=== PATIENT | male | born 1955 | race Caucasian/White ===

== ENCOUNTER 2017-01-25 15:29 | Inpatient (IN) | payer BC ==
[~2017-01-25] VITALS: Ht 170.2 cm; Wt 81.2 kg
[2017-02-05] MEDS ORDERED: TAMS0.4C4 PO (09:27)
[2017-02-21] MEDS ORDERED: TRANEXAMIC ACID IV SCH ×2 (07:30→14:00)
[2017-02-21] MEDS ORDERED: VANCOMYCIN 1000 MG/NS 250 ML (for <70 kg) IV SCH ×2 (07:30)
[2017-02-21] MEDS ORDERED: EXPAREL PERI-ARTICULAR INJECTION (TOTAL VOL. 60 ML) P-ARTICULR SCH ×2 (07:30)
[2017-02-21] MEDS ORDERED: ceFAZolin 2 GM PREMIX 50 ML IV SCH (07:30)
[2017-02-21] MEDS ORDERED: SODIUM CHLORIDE 0.9% IV SCH ×2 (07:30→14:00)
[2017-02-21] MEDS ORDERED: SODIUM CHLORID 0.9% 500 ML IV PRN (07:30)
[2017-02-21] MEDS ORDERED: POVIDONE IODINE 5% (ANTISEPSIS KIT) 4 APPLICATIONS EACH NARE PRN (07:30)
[2017-02-21] MEDS ORDERED: METOPROLOL TARTRATE 25 MG TAB PO PRN (07:30)
[2017-02-21] MEDS ORDERED: INSULIN HUMAN REGULAR 1,000 UNITS/10 ML VIAL SQ PRN (07:30)
[2017-02-21] MEDS ORDERED: CHLORHEXIDINE GLUCONATE 2 % 1 PACK (2 CLOTHS) TOPICAL PRN (07:30)
[2017-02-21] MEDS ORDERED: POVIDONE IODINE 7.5% SCRUB 118 ML BOTTLE TOPICAL SCH (07:30)
[2017-02-21] MEDS ORDERED: LACTATED RINGER'S 1000 ML IV PRN (07:30)
[2017-02-21] MEDS ORDERED: DEXAMETHASONE SOD PHOS 20 MG/5 ML VIAL IV SCH (08:00)
[2017-02-21 08:01] VITALS: BP 130/92; PULSE 67; RESP 18; TEMP 98; O2SAT 97
[2017-02-21] MEDS ORDERED: GENTAMICIN SULFATE 80 MG/2 ML VIAL ONE (09:50)
--- NOTE | 2017-02-21 10:53 | HHI.DCPOC ---
Discharge Care Plan Diagnosis: (1) Osteoarthritis of right hip (2) Status post total hip replacement, right Your Health Problems Are: Difficulty with ADL Goals to Promote Your Health * To prevent worsening of your condition and complications * To maintain your health at the optimal level Directions to Meet Your Goals Take your medications as prescribed Follow your dietary instruction Follow activity as directed Keep your appointments as scheduled Take your immunizations and boosters as scheduled If your symptoms worsen call your PCP, if no PCP go to Urgent Care Center or Emergency Room Smoking is Dangerous to Your Health. Avoid second hand smoke Call the 24-hour hour crisis hotline for domestic abuse at Everett Pascual Feb 21, 2017 10:53
--- NOTE | 2017-02-21 10:54 | HHI.FF ---
Face to Face Verification Diagnosis: (1) Osteoarthritis of right hip (2) Status post total hip replacement, right Physical Therapy Gait training, Transfer training, bed to chair Hip: Total hip Right LE Weight Bearing: WB as tolerated Right LE Range of Motion: Active ROM Nursing Nursing: Guilherme teaching, Dressing changes Dressing Changes: Daily dressing change I have seen patient Jaxon Etienne on 02/21/17. My clinical findings support the need for the requested home health care services because: Limited ability to care for self High risk of falls I certify that my clinical findings support that this patient is homebound because: Post-op weakness Unsteady gait/balance Everett Pascual Feb 21, 2017 10:54
[2017-02-21] MEDS ORDERED: COMMODE 3-IN-11 MIS (10:56)
[2017-02-21] MEDS ORDERED: WALKER WHEELS/F1 MIS (10:56)
[2017-02-21] MEDS ORDERED: MORPHINE SULFATE 4 MG/ML INJ IV PUSH PRN (12:15)
[2017-02-21] MEDS ORDERED: ONDANSETRON HCL 4 MG/2 ML VIAL IVP PRN (12:15)
[2017-02-21] MEDS ORDERED: NALOXONE HCL 0.4 MG/ML AMP IV PRN (12:15)
[2017-02-21] MEDS ORDERED: ALUMINUM/MAGNESIUM/SIMETH 30 ML CUP PO PRN (12:15)
[2017-02-21] MEDS ORDERED: MAGNESIUM HYDROXIDE SUSP 30 ML CUP PO PRN (12:15)
[2017-02-21] MEDS ORDERED: SODIUM CHLORIDE 0.9% FLUSH 5 ML FLUSH IVF PRN (12:15)
[2017-02-21] MEDS ORDERED: BISACODYL 10 MG SUPP RECTAL PRN (12:15)
[2017-02-21] MEDS ORDERED: Post-op Orders (for Pharmacy) MISC XX ONE (12:15)
[2017-02-21] MEDS ORDERED: oxyCODONE/ACETAMINOPHEN 10 MG/325 MG TAB PO PRN (12:15)
[2017-02-21] MEDS ORDERED: diphenhydrAMINE HCL 50 MG/ML VIAL IV PRN (12:15)
--- NOTE | 2017-02-21 12:17 | PD.OP ---
cc: Adrian Shelley MD Operative Report Date of Surgery: Feb 21, 2017 Preoperative Diagnosis: Right hip severe osteoarthritis Postoperative Diagnosis: Same Procedure: Right total hip arthroplasty Anesthesia: Spinal Surgeon: Adrian Shelley Silver Service Waiter(s): NANCY Lockhart The surgical procedure was assisted by my Advanced Registered Nurse Practitioner. My STEEL PICKLER presence was necessary throughout this case for the manipulation and positioning of the surgical extremity. My STEEL PICKLER was assisting me throughout the duration of this procedure. The skill set of an Advance Registered Nurse Practitioner was medically necessary to complete this procedure. During the surgical case, the surgical first assistant was working at the back table and the Advance Registered Nurse Practitioner was directly assisting me. Operation and Findings: IMPLANT DESCRIPTION: 1. Opal Gription Cup, acetabular size 54. 2. Opal AltrX polyethylene, neutral. 4. Corail femoral stem size 12, no collar, high offset. 5. Femoral head/neck Remick, 36, +5. ESTIMATED BLOOD LOSS: 500 cc. JUSTIFICATION FOR PROCEDURE: The patient has end-stage osteoarthritis to the hip. There is an attached conservative measures pathway form in the chart that describes the nonoperative measures that were undertaken prior to consideration of surgical management. The patient understood the risks and benefits of surgical management. See my office notes for further details. PROCEDURE: The patient was brought back to the operative theatre. Adequate anesthesia was obtained. The patient received intravenous vancomycin and Ancef. The patient was carefully placed on the operative table. The lower extremity was prepped and draped in the usual sterile fashion. Fluoroscopic images were obtained. We made a standard anterior incision over the hip. We dissected through the TFL fascia, exposing the anterior capsule. Arthrotomy was performed in a T-shaped fashion. The capsule was tagged with a #2 FiberWire. End-stage arthritis was identified. Osteotomy was performed through the femoral neck exposing the acetabulum. Remnants of the labrum were resected and osteophytes were removed. We sequentially reamed the acetabulum. We trialed the hip and placed the final cup into position. This was done under fluoroscopic guidance to obtain the appropriate inclination and anteversion. A manhole cover was placed into the acetabular component. We then placed the final polyethylene into position and confirmed that it was well seated. Capsular attachments on the calcar and the inner aspect of the greater trochanter were resected. On the proximal aspect of the femur we used a rongeur , box osteotome, canal finder, sequential broaches and lateralizing rasp. We calcar planed the proximal femur. Then thoroughly irrigated the wound. We trialed the hip with the appropriate size stem. We placed the final stem in to position and trialed again. The hip was stable while it was externally rotated 70 degrees when the leg was lowered to the floor. The final head was applied, and final fluoroscopic images were obtained. The wound was thoroughly irrigated again. Interarticular injection of liposomal bupivacaine was given. The capsule was closed with #2 FiberWire and #1 Vicryl. The deep fascia was closed with a #2 Stratafix, followed by 2-0 Vicryl in the skin and yvrose. Postop plan is to weight-bear as tolerated. DVT prophylaxis will be performed with Kaylen, REYNALDO lakhani, early mobilization, and Lovenox followed by aspirin. Adrian Shelley MD Feb 21, 2017 12:17
[2017-02-21] MEDS ORDERED: PERC10TA27 PO (12:20)
[2017-02-21] MEDS ORDERED: ENOX40P SQ (12:20)
[2017-02-21] MEDS ORDERED: ASPI325T PO (12:20)
[2017-02-21] MEDS ORDERED: MIDAZOLAM HCL 2 MG/2 ML VIAL ONE (12:58)
[2017-02-21] MEDS ORDERED: PROPOFOL 200 MG/20 ML AMP IV ONE (13:08)
[2017-02-21] MEDS ORDERED: PHENYLEPH/NS 1000 MCG/10 ML SYR IV ONE (13:09)
[2017-02-21] MEDS ORDERED: ePHEDrine/NS 25 MG/5 ML SYR IV ONE (13:09)
[2017-02-21] MEDS ORDERED: LACTATED RINGER'S 1000 ML INJ 1,000 ML IV ONE (13:10)
[2017-02-21] MEDS: SODIUM CHLOR 0.9% 1000 ML INJ 1,000 ML IV SCH ×2 (13:12→19:45)
[2017-02-21] MEDS ORDERED: DO NOT ADM ANY ANTICOAGULANT DRUGS PRN (13:15)
--- NOTE | 2017-02-21 14:09 | RADRPT ---
EXAM DATE/TIME: 02/21/2017 13:26 [facility] COMPARISON: No previous studies available for comparison. INDICATIONS : Post op total right hip replacement. MEDICAL HISTORY : None. SURGICAL HISTORY : None. ENCOUNTER: Initial ACUITY: 1 day PAIN SCORE: 0/10 LOCATION: Right Hip. FINDINGS: 3 views of the right hip reveal a total hip arthroplasty in good position. No fracture or dislocation . Surgical clips overlie the right hip. Air is seen within the subcutaneous tissues and joint space. CONCLUSION: Total hip arthroplasty in good position. Bryant Orr Jr., MD on February 21, 2017 at 14:05 Board Certified Radiologist. This report was verified electronically.
--- NOTE | 2017-02-21 15:39 | RADRPT ---
EXAM DATE/TIME: 02/21/2017 10:51 [facility] COMPARISON: No previous studies available for comparison. INDICATIONS : Right total hip replacement. MEDICAL HISTORY : None. SURGICAL HISTORY : None. ENCOUNTER: Initial ACUITY: 1 day PAIN SCORE: Non-responsive. LOCATION: Right Hip. FINDINGS: The patient is status post a total hip arthroplasty with a bipolar prosthesis. Prosthesis is well-sea marie. Alignment is anatomic. A fracture is not appreciated. CONCLUSION: Anatomic alignment. Ron Sage MD FACR Board Certified Radiologist. This report was verified electronically.
[2017-02-21 16:25] VITALS: BP 121/82; PULSE 74; RESP 16; TEMP 96.9; O2SAT 97
[2017-02-21] MEDS: TAMSULOSIN HCL 0.4 MG CAP PO SCH (19:44)
[2017-02-21] MEDS: SODIUM CHLORIDE 0.9% FLUSH 5 ML FLUSH IVF SCH (19:45)
[2017-02-21 20:33] VITALS: O2SAT 98
[2017-02-21 21:06] VITALS: BP 124/81; PULSE 101; RESP 18; TEMP 97.4; O2SAT 96
[2017-02-21] MEDS: ZOLPIDEM TARTRATE 5 MG TAB PO PRN (22:44)
[2017-02-21] MEDS: oxyCODONE/ACETAMINOPHEN 10 MG/325 MG TAB PO PRN (22:44)
[2017-02-22] VITALS (8 sets, daily range): BP systolic 94–141; BP diastolic 68–86; PULSE 64–96; RESP 17–18; TEMP 96.9–99.5; O2SAT 95–98
[2017-02-22 06:14] LABS: HEMATOCRIT 29.7 % (39.0-51.0); MEAN CELL VOLUME 85.4 FL (80.0-100.0); MEAN CORPUSCULAR HEMOGLOBIN 29.3 PG (27.0-34.0); MEAN CORPUSCULAR HGB CONC 34.3 % (32.0-36.0); PLATELET COUNT 105 TH/MM3 (150-450); RED BLOOD COUNT 3.48 MIL/MM3 (4.50-5.90); RED CELL DISTRIBUTION WIDTH 14.4 % (11.6-17.2); REVIEW FLAG FINAL; WHITE BLOOD COUNT 10.2 TH/MM3 (4.0-11.0)
[2017-02-22] MEDS: oxyCODONE/ACETAMINOPHEN 10 MG/325 MG TAB PO PRN ×4 (06:38→23:17)
[2017-02-22] MEDS: SODIUM CHLORIDE 0.9% FLUSH 5 ML FLUSH IVF SCH ×2 (09:00→21:34)
[2017-02-22] MEDS: SODIUM CHLOR 0.9% 1000 ML INJ 1,000 ML IV SCH ×2 (09:00→18:19)
--- NOTE | 2017-02-22 12:00 | PD.ORT.PN ---
Subjective Post Op Day #: 1 Subjective Remarks The patient is resting comfortably in bed with mild stiffness and pain to the right hip. The patient has also had some hypotension and dizziness. Objective Vitals Vital Signs Date Time Temp Pulse Resp B/P Pulse Ox O2 Delivery O2 Flow Rate FiO2 02/22/17 08:00 98.0 72 18 102/70 98 02/22/17 04:00 99.2 76 18 99/73 98 02/22/17 00:00 99.5 96 18 101/73 95 02/21/17 21:06 97.4 101 18 124/81 96 02/21/17 20:33 98 21 02/21/17 18:40 Room Air 02/21/17 16:25 96.9 74 16 121/82 97 02/21/17 16:00 97.5 69 17 103/79 97 Room Air 02/21/17 15:41 75 13 100/78 98 Room Air 02/21/17 15:39 65 18 94/72 99 Room Air 02/21/17 15:30 67 19 126/77 99 Room Air 02/21/17 15:15 82 12 114/87 98 Room Air 02/21/17 15:00 84 21 111/83 100 Room Air 02/21/17 14:45 82 17 111/78 99 Nasal Cannula 2 02/21/17 14:30 76 14 105/71 100 Nasal Cannula 2 02/21/17 14:15 72 13 97/69 99 Nasal Cannula 2 02/21/17 14:00 74 13 95/65 100 Nasal Cannula 2 02/21/17 13:45 77 15 89/60 98 Nasal Cannula 2 02/21/17 13:30 87 15 89/59 98 Nasal Cannula 2 02/21/17 13:15 91 20 78/54 98 Nasal Cannula 2 02/21/17 13:00 95 17 80/54 97 Nasal Cannula 2 02/21/17 12:53 92 10 82/52 96 Nasal Cannula 2 02/21/17 12:52 92 10 78/52 96 Nasal Cannula 2 02/21/17 12:50 97.7 92 14 74/48 96 Nasal Cannula 2 I/O 02/21/17 02/21/17 02/21/17 02/22/17 02/22/17 02/22/17 07:00 15:00 23:00 07:00 15:00 23:00 Intake Total 2000 ml 1349 ml 735 ml Output Total 500 ml 1650 ml 300 ml Balance 1500 ml -301 ml 435 ml Intake Oral 100 ml IV Total 1249 ml 735 ml Other 2000 ml Output Urine Total 1650 ml 300 ml Estimated Blood Loss 500 ml # Voids 1 # Bowel Movements 0 0 Result Diagram: 02/22/17 0534 Imaging Last 24 hours Impressions Hip and Pelvis X-Ray 02/21/17 1213 Signed Impressions: Service Date/Time: Tuesday, February 21, 2017 13:26 - CONCLUSION: Total hip arthroplasty in good position. Bryant Orr Jr., MD Procedures Right MALIK Objective Remarks Dressings changed with scant serosanguineous drainage. Incision is well approximated with surgical clips intact. No redness or s/s of infection. EHL/ TA/G intact. 2+ pedal pulse. Calf is soft and nontender. Mild to moderate swelling. + SILT. Assessment & Plan Ortho Post Op Day #: 1 Problem List: Assessment and Plan POD #1: Right MALIK 1. WBAT RLE 2. Lovenox for DVT prophylaxis 3. Ice to the right hip PRN 4. Stable for discharge home with home health today if dizziness improves. 5. F/U with Dr. Shelley in the office in 1-2 weeks. Everett Pascual Feb 22, 2017 12:00
[2017-02-22] MEDS: ENOXAPARIN SODIUM 40 MG/0.4 ML SYRINGE SQ SCH (12:12)
[2017-02-22] MEDS ORDERED: DEXAMETHASONE SOD PHOS 20 MG/5 ML VIAL IV ONE (12:45)
[2017-02-22] MEDS: TAMSULOSIN HCL 0.4 MG CAP PO SCH (21:33)
[2017-02-22] MEDS: DOCUSATE SODIUM 100 MG CAP PO SCH (21:33)
[2017-02-22] MEDS: MULTIVITAMINS/MINERALS THERAPEUTIC TAB PO SCH (21:33)
[2017-02-22] MEDS: ZOLPIDEM TARTRATE 5 MG TAB PO PRN (23:17)
[2017-02-23 04:00] VITALS: BP 126/83
[2017-02-23] MEDS: SODIUM CHLOR 0.9% 1000 ML INJ 1,000 ML IV SCH (05:00)
[2017-02-23 07:40] LABS: HEMATOCRIT 31.4 % (39.0-51.0); MEAN CELL VOLUME 86.2 FL (80.0-100.0); MEAN CORPUSCULAR HEMOGLOBIN 28.7 PG (27.0-34.0); MEAN CORPUSCULAR HGB CONC 33.3 % (32.0-36.0); PLATELET COUNT 96 TH/MM3 (150-450); RED BLOOD COUNT 3.64 MIL/MM3 (4.50-5.90); RED CELL DISTRIBUTION WIDTH 14.2 % (11.6-17.2); WHITE BLOOD COUNT 9.5 TH/MM3 (4.0-11.0)
[2017-02-23 07:51] LABS: REVIEW FLAG FINAL
[2017-02-23 08:00] VITALS: BP 121/82; PULSE 59; RESP 18; TEMP 98.2; O2SAT 97
[2017-02-23] MEDS: oxyCODONE/ACETAMINOPHEN 10 MG/325 MG TAB PO PRN (08:25)
[2017-02-23] MEDS: MULTIVITAMINS/MINERALS THERAPEUTIC TAB PO SCH (08:25)
[2017-02-23] MEDS: SODIUM CHLORIDE 0.9% FLUSH 5 ML FLUSH IVF SCH (08:25)
[2017-02-23] MEDS: DOCUSATE SODIUM 100 MG CAP PO SCH (08:25)
[2017-02-23] MEDS: ENOXAPARIN SODIUM 40 MG/0.4 ML SYRINGE SQ SCH (11:30)
--- NOTE | 2017-02-26 22:23 | HHI.DS ---
Discharge Summary Admission Date Feb 21, 2017 at 07:02 Discharge Date: Feb 23, 2017 Admitting Diagnosis OA of the right hip Status post total hip replacement, right. Diagnosis: (1) Osteoarthritis of right hip Diagnosis: Principal (2) Status post total hip replacement, right Diagnosis: Principal Procedures Right MALIK Brief History This is a 62 year old male patient with severe OA of the right hip. CBC/BMP: 02/23/17 0702 PE at Discharge Dressings changed with scant serosanguineous drainage. Incision is well approximated with surgical clips intact. No redness or s/s of infection. EHL/ TA/G intact. 2+ pedal pulse. Calf is soft and nontender. Mild to moderate swelling. + SILT. Hospital Course The patient was admitted to the hospital for severe OA of the right hip to have a right MALIK. The patient tolerated the procedure well with no complications. The patient is WBAT. The patient was placed on Lovenox followed by ASA post op for DVT prophylaxis. The patient is on a regular diet. The patient will f/u with Dr. Shelley in 1-2 weeks. The patient is discharged to home health. Pt Condition on Discharge: Stable Discharge Disposition: Disch w/ Home Health Serv Discharge Instructions Diet Instructions: As Tolerated, No Restrictions Activities You Can Perform: Weight Bearing as Alex Activities to Avoid: Strenuous Activity Follow up Referrals: Orthopedics with Adrian Shelley MD New Medications: Aspirin (Aspirin) 325 Mg Tab 325 MG PO DAILY Start Aspirin after Lovenox is completed. Prevent Blood Clot # 30 Ref 0 TAB Commode 3-in-1 (Commode 3-in-1) 1 Mis Mis 1 EA .ROUTE DIRECTED #1 Ref 0 EA Enoxaparin Inj (Lovenox Inj) 40 Mg/0.4 Ml Syr 40 MG SQ DAILY Start Aspirin after Lovenox is completed. Blood Clot Prevention # 10 Ref 0 SYRINGE Oxycodone-Acetaminophen (Percocet) 10-325 mg Tab 1-2 TAB PO Q4H PRN PAIN #60 Ref 0 TAB Walker with Front Wheels (Walker with Front Wheels) 1 Mis Mis 1 EA .ROUTE DIRECTED #1 Ref 0 EA Continued Medications: Tamsulosin (Tamsulosin) 0.4 Mg Cap 0.4 MG PO HS Manage Prostate Problems #30 Ref 0 CAP Everett Pascual Feb 26, 2017 22:23
== END 2017-02-23 11:51 | disposition home health service (06) | DRG 470 ==
LOC: HSDI 02-21 07:02 → N06B 02-21 16:16
PROVIDERS: ADMIT Orthopaedic Surgery; ATTEND Orthopaedic Surgery
PROC: 0SR904A Replacement of Right Hip Joint with Ceramic on Polyethylene Synthetic Substitute, Uncemented, Open Approach (ICD-10-PCS; principal; 2017-02-21 10:15)
DX: M16.11 Unilateral primary osteoarthritis, right hip (principal); I95.9 Hypotension, unspecified; R42 Dizziness and giddiness; N40.0 Benign prostatic hyperplasia without lower urinary tract symptoms; Z87.891 Personal history of nicotine dependence
CPT/HCPCS: 73501; 73502; 76000; 85027; 86850; 86900; 86901; 94150; C1776; C9290; J0690; J1100; J1580; J1650; J2250; J2370; J3010; J3370; J7030; J7050; J7120

== ENCOUNTER → 2017-02-05 | Outpatient (CLI) | payer BC ==
[~2017-02-05] MED LIST: ASPI325T PO; COMMODE 3-IN-11 MIS; ENOX40P SQ; LISI5 PO; PERC10TA27 PO; TAMS0.4C4 PO; WALKER WHEELS/F1 MIS
== END ==
LOC: CPRE 09:06
PROVIDERS: ATTEND Orthopaedic Surgery
DX: Z01.812 Encounter for preprocedural laboratory examination (principal); M25.50 Pain in unspecified joint